=== PATIENT | female | born 1960 | race Caucasian/White ===

== ENCOUNTER 2021-05-22 22:43 | Emergency (ER) | payer MEDICAID ==
[2021-05-22] MEDS ORDERED: Sodium Chloride 0.9% 10 ML Syringe FLUSH PRN (23:04)
[2021-05-22] MEDS ORDERED: Ondansetron 4 MG/2 ML SDV IVPUSH ONE (23:06)
[2021-05-22] MEDS ORDERED: Lactated Ringers 1,000 ML IV ONE (23:06)
--- NOTE | 2021-05-22 23:42 | EDM.PDOC ---
ED HPI GENERAL MEDICAL PROBLEM - General Chief Complaint: General Time Seen by Provider: 05/22/21 23:31 Source of Information: Reports: Patient - History of Present Illness INITIAL COMMENTS - FREE TEXT/NARRATIVE: Bing is a 61 y/o female who comes to the ER with GI complaints. She has had GI sx since . Then the Saturday after she was COVID tested and came back positive. She has been at home with a low grade fever and nausea, vomiting, and diarrhea. She has tried several OTC meds with minimal relief. Tonight she thought her sat was in the 80s at home so she came to the ER, but on arrival her oxygen level was in the 90s. She has not received the COVID vaccine to date. Left Leg Pain Score (Numeric/FACES): 4 - Related Data Allergies Allergy/AdvReac Type Severity Reaction Status Date / Time ibuprofen Allergy Severe Swelling Verified 05/22/21 22:50 latex Allergy Mild Swelling Verified 05/22/21 22:53 meperidine [From Demerol] Allergy Unknown Other Verified 05/22/21 22:51 amoxicillin [From Augmentin] Allergy Hives Verified 05/22/21 22:53 clavulanic acid Allergy Hives Verified 05/22/21 22:53 [From Augmentin] ramipril [From Altace] Allergy Swelling Verified 05/22/21 22:53 Home Meds: Home Meds Benzonatate 1 - 2 % PO Q8H PRN #60 capsule 05/22/21 [Rx] FLUoxetine [PROzac] 20 mg PO Q3D 05/22/21 [History] Hydrochlorothiazide/Lisinopril [Lisinopril/HCTZ 10-12.5 MG] 1 tab PO DAILY 05/22/21 [History] Ondansetron [Ondansetron ODT] 4 mg PO Q6H PRN #20 tab.rapdis 05/22/21 [Rx] ED ROS GENERAL - Review of Systems Review Of Systems: See Below Constitutional: Reports: Fever, Weakness, Fatigue HEENT: Reports: No Symptoms Respiratory: Reports: Cough Cardiovascular: Reports: No Symptoms Endocrine: Reports: No Symptoms GI/Abdominal: Reports: Abdominal Pain, Diarrhea, Decreased Appetite, Nausea, Vomiting : Reports: No Symptoms Musculoskeletal: Reports: No Symptoms Skin: Reports: No Symptoms Neurological: Reports: Headache Psychiatric: Reports: No Symptoms Hematologic/Lymphatic: Reports: No Symptoms Immunologic: Reports: No Symptoms ED EXAM, GENERAL - Physical Exam Exam: See Below General Appearance: Alert, WD/WN, No Apparent Distress Eye Exam: Bilateral Eye: PERRL Ears: Normal External Exam, Normal Canal, Hearing Grossly Normal Nose: Normal Inspection, Normal Mucosa Throat/Mouth: Normal Inspection, Normal Lips, Normal Voice Head: Atraumatic, Normocephalic Neck: Supple Respiratory/Chest: No Respiratory Distress, Lungs Clear, Other (Occasional mild cough noted) Cardiovascular: Normal Peripheral Pulses, Regular Rate, Rhythm, No Murmur GI/Abdominal: Normal Bowel Sounds, Soft (Female) Exam: Deferred Rectal (Female) Exam: Deferred Extremities: Normal Inspection, Normal Range of Motion, No Pedal Edema, Normal Capillary Refill Neurological: Alert, Oriented, CN II-XII Intact, Normal Cognition Psychiatric: Normal Affect, Normal Mood Skin Exam: Warm, Dry, Intact, Normal Color Course - Vital Signs Text/Narrative:: 2339 The patient was seen by the [employer]IDE. Vitals were stable. Labs ordered. She was given a liter of LR and Zofran 4mg IVP. 2355 Labs reviewed. CBC neg, CMP AST 40, Hqrojc=847; UA SG>=1.030, Ketones=80. labs reflect COVID presentation with GI sx. Will plan to send pt home with Ondanestron. Written instructions were given and she left the ER in stable condition. Last Recorded V/S: Last Vital Signs Temp 38.0 C 05/22/21 22:48 Pulse 107 H 05/22/21 22:48 Resp 18 05/22/21 22:48 BP 126/73 05/22/21 22:48 Pulse Ox 94 L 05/22/21 22:48 - Orders/Labs/Meds Orders: Active Orders 24 hr Category Date Time Status Lactated Ringers [Ringers, Lactated] 1,000 ml Med 05/22/21 23:06 Active IV .BOLUS Ondansetron [Zofran ODT] Med 05/23/21 00:03 Once 4 mg PO ONETIME ONE Sodium Chloride 0.9% [Saline Flush] Med 05/22/21 23:04 Active 10 ml FLUSH ASDIRECTED PRN Saline Lock Insert [OM.PC] Routine Oth 05/22/21 23:04 Ordered Medication Orders Lactated Ringer's (Ringers, Lactated) 1,000 mls @ 999 mls/hr IV .BOLUS ONE Stop: 05/23/21 00:06 Last Admin: 05/22/21 23:33 Dose: 999 mls/hr Documented by: MALLY Sodium Chloride (Sodium Chloride 0.9% 10 Ml Syringe) 10 ml FLUSH ASDIRECTED PRN PRN Reason: Keep Vein Open Labs: Laboratory Tests 05/22/21 05/22/21 05/22/21 Range/Units 23:19 23:27 23:27 WBC 6.4 (4.0-10.2) K/uL RBC 4.87 (3.77-5.09) M/uL Hgb 14.2 (11.7-15.5) g/dL Hct 42.3 (34.0-46.0) % MCV 86.9 (84.0-98.0) fL MCH 29.2 (28.2-33.3) pg MCHC 33.6 (31.7-36.0) g/dL RDW 14.0 (11.2-14.1) % Plt Count 149 L (150-350) K/uL Neut % (Auto) 79.3 (45.0-80.0) % Lymph % (Auto) 14.4 (10.0-50.0) % [place] % (Auto) 6.1 (2.0-14.0) % Eos % (Auto) 0.0 (0.0-5.0) % Baso % (Auto) 0.2 (0.0-2.0) % Neut # (Auto) 5.07 (1.40-7.00) K/uL Lymph # (Auto) 0.92 (0.50-3.50) K/uL [place] # (Auto) 0.39 (0.00-1.00) K/uL Eos # (Auto) 0.00 (0.00-0.50) K/uL Baso # (Auto) 0.01 (0.00-0.20) K/uL Sodium 135 L (136-145) mmol/L Potassium 3.9 (3.5-5.1) mmol/L Chloride 97 L (98-107) mmol/L Carbon Dioxide 26.8 (21.0-32.0) mmol/L Anion Gap 15.1 H (7-15) meq/L BUN 10 (7-18) mg/dL Creatinine 0.76 (0.51-1.17) mg/dL Est Cr Clr Drug Dosing 68.82 mL/min Estimated GFR (MDRD) > 60 mL/min Glucose 135 H (70-99) mg/dL Calcium 8.8 (8.5-10.1) mg/dL Magnesium 1.8 (1.8-2.4) mg/dL Total Bilirubin 0.6 (0.2-1.0) mg/dL AST 40 H (15-37) U/L ALT 41 (12-78) U/L Alkaline Phosphatase 53 (46-116) IU/L Total Protein 7.3 (6.4-8.2) g/dL Albumin 3.3 L (3.4-5.0) g/dL Specimen Type Urinvoid Urine Color Dark yellow Urine Appearance Slightly cloudy Urine pH 6.0 (5.0-9.0) Ur Specific [place] >= 1.030 (1.005-1.030) Urine Protein 100 H (NEGATIVE) mg/dL Urine Glucose (UA) Negative (NEGATIVE) mg/dL Urine Ketones 80 H (NEGATIVE) mg/dL Urine Occult Blood Negative (NEGATIVE) Urine Nitrite Negative (NEGATIVE) Urine Bilirubin Small H (NEGATIVE) Urine Urobilinogen 1.0 (0.2-1.0) E.U./dL Ur Leukocyte Esterase Negative (NEGATIVE) Urine RBC 0-5 /HPF Urine WBC 0-5 /HPF Ur Epithelial Cells Few /LPF Urine Bacteria Moderate H (NONE TO FEW) /HPF Urine Mucus Many H (NEGATIVE) /LPF Meds: Medications Generic Name Dose Route Start Last Admin Trade Name Freq PRN Reason Stop Dose Admin Lactated Ringer's 1,000 mls @ 999 mls/hr 05/22/21 23:06 05/22/21 23:33 Ringers, Lactated IV 05/23/21 00:06 999 mls/hr .BOLUS ONE Administration Sodium Chloride 10 ml 05/22/21 23:04 Sodium Chloride 0.9% 10 Ml Syringe FLUSH ASDIRECTED PRN Keep Vein Open Discontinued Medications Generic Name Dose Route Start Last Admin Trade Name Freq PRN Reason Stop Dose Admin Ondansetron HCl 4 mg 05/22/21 23:06 05/22/21 23:33 Ondansetron 4 Mg/2 Ml Sdv IVPUSH 05/22/21 23:07 4 mg ONETIME ONE Administration Departure - Departure Time of Disposition: 23:59 Disposition: Home, Self-Care 01 Condition: Good Clinical Impression: COVID-19 - Discharge Information Prescriptions: Benzonatate 1 - 2 % PO Q8H PRN #60 capsule PRN Reason: Cough Ondansetron [Ondansetron ODT] 4 mg PO Q6H PRN #20 tab.rapdis PRN Reason: Nausea Instructions: 10 Things You Can Do to Manage Your COVID-19 Symptoms at Home - [facility] (12/30/2020) Referrals: Kayli Acosta NP [Primary Care Provider] - Forms: ED Department Discharge Additional Instructions: Most patients are able to manage their symptoms at home. You can use any over the counter medications to treat your symptoms. -Ibuprofen /Acetaminophen as needed [You may also use over the counter meds -Benzonate Capsules 1-2 caps oral every 8 hours as needed for cough #60 (Rx) -Ondanestron ODT 4mg oral every 6 hours as needed for nausea #20(Rx) #1 tablet sent from the ER until you can get the prescription filled. -Drink plenty of fluids -Rest -Quarantine for 14 days from start of symptoms. -Keep your telehealth visit at the [facility] tomorrow -Return to the ER or clinic if your condition is not improving as expected or you have any worsening of symptoms that you are unable to manage at home. -See COVID Home Instruction Sheet below Sepsis Event Note (ED) - Focused Exam Vital Signs: Vital Signs Temp Pulse Resp BP Pulse Ox 05/22/21 22:48 38.0 C 107 H 18 126/73 94 L - Problem List & Annotations (1) COVID-19 SNOMED Code(s): 907743388 Code(s): U07.1 - COVID-19 Status: Acute Annotation/Comment:: Sats 94% on room air. Seems to have more GI side effects. Given a liter of LR and Zofran IV, felt better. Sent home with meds for symptomatic care. - Problem List Review Problem List Initiated/Reviewed/Updated: Yes - My Orders Last 24 Hours: My Active Orders 05/22/21 23:04 Sodium Chloride 0.9% [Saline Flush] 10 ml FLUSH ASDIRECTED PRN Saline Lock Insert [OM.PC] Routine 05/22/21 23:06 Lactated Ringers [Ringers, Lactated] 1,000 ml IV .BOLUS 05/23/21 00:03 Ondansetron [Zofran ODT] 4 mg PO ONETIME ONE - Assessment/Plan Last 24 Hours: My Active Orders 05/22/21 23:04 Sodium Chloride 0.9% [Saline Flush] 10 ml FLUSH ASDIRECTED PRN Saline Lock Insert [OM.PC] Routine 05/22/21 23:06 Lactated Ringers [Ringers, Lactated] 1,000 ml IV .BOLUS 05/23/21 00:03 Ondansetron [Zofran ODT] 4 mg PO ONETIME ONE Plan: As above
[2021-05-22 23:51] LABS: ANION GAP 15.1 meq/L (7-15); CHLORIDE,CL 97 mmol/L (98-107); SODIUM,NA 135 mmol/L (136-145)
[2021-05-23] MEDS ORDERED: Ondansetron 4 MG Tab.DIS PO ONE (00:03)
== END 2021-05-23 00:43 | disposition home or self-care (01) ==
LOC: LL.ED 22:43
DX: U07.1 COVID-19 (principal); Z88.6 Allergy status to analgesic agent; Z88.5 Allergy status to narcotic agent; Z91.040 Latex allergy status; Z88.0 Allergy status to penicillin; Z88.1 Allergy status to other antibiotic agents; Z88.8 Allergy status to other drugs, medicaments and biological substances
CPT/HCPCS: 36415; 80053; 81001; 83735; 85025; 96374; 99284; 99284-25; A9270-GY; J2405; J7120